=== PATIENT | male | born 1980 | race Caucasian/White ===

== ENCOUNTER 2017-01-12 03:42 | Emergency (ER) | payer BC ==
[2017-01-12] MEDS ORDERED: Ibuprofen 800 MG TAB ONE (04:06)
[2017-01-12] MEDS ORDERED: Azithromycin 250 MG TAB ONE (04:06)
== END 2017-01-12 04:10 | disposition home or self-care (01) ==
LOC: MADERS 03:42
DX: H66.91 Otitis media, unspecified, right ear (principal); H60.91 Unspecified otitis externa, right ear; E03.9 Hypothyroidism, unspecified; Z79.899 Other long term (current) drug therapy
CPT/HCPCS: 99282

== ENCOUNTER 2017-03-27 09:21 | Outpatient (CLI) | payer BC, OTHER ==
[2017-03-27 11:18] LABS: Hemoglobin A1c 4.9 % (4.0-6.0)
[2017-03-27 11:23] LABS: ALT (SGPT) 32 U/L (8-55); AST (SGOT) 23 U/L (5-34); Albumin 4.2 g/dL (3.5-5.0); Alkaline Phosphatase 102 U/L (40-150); Anion Gap 13 mmol/L (10-20); BUN (Urea Nitrogen) 18 mg/dL (8.9-20.6); Bilirubin, Total 0.5 mg/dL (0.2-1.2); Calc. Creatinine Clearance 0 mL/min (70-130); Calcium 9.6 mg/dL (7.8-10.44); Carbon Dioxide 25 mmol/L (22-29); Cardiac Risk 5.8 (Less than 4.5); Chloride 104 mmol/L (98-107); Cholesterol 209 mg/dl (< 200 Desired); Estimated GFR-MDRD Greater than 90; Globulin 2.8 g/dL (2.4-3.5); Glucose 90 mg/dL (70-105); HDL Cholesterol 36 mg/dL (>60 Neg Risk); LDL Cholesterol, Calculated 104 mg/dL; Magnesium 2.2 mg/dL (1.6-2.6); Potassium 4.1 mmol/L (3.5-5.1); Sodium 138 mmol/L (136-145); Triglycerides 343 mg/dL (Less than 150)
[2017-03-27 12:43] LABS: #Basophils 0.1 thou/uL (0.0-0.2); #Eosinphils 0.1 thou/uL (0.0-0.7); #Lymphocytes 2.4 thou/uL (1.20-3.40); #Monocytes 0.3 thou/uL (0.11-0.59); #Neutrophils 2.5 thou/uL (1.40-6.50); %Basophils 1.1 % (0.0-1.0); %Eosinophils 2.4 % (0.0-10.0); %Lymphocytes 43.8 % (21.0-51.0); %Monocytes 6.2 % (0.0-10.0); %Neutrophils 46.4 % (42.0-75.0); Hemoglobin 14.9 g/dL (14.0-18.0); Mean Corpuscular HGB CONC 33.9 g/dL (32.0-36.0); Mean Corpuscular Hemoglobin 29.6 pg (27.0-31.0); Mean Corpuscular Volume 87.1 fl (80.0-94.0); Mean Platelet Volume 6.5 fL (7.4-10.4); Platelet Count 283 thou/uL (130-400); Red Blood Cell (RBC) Count 5.06 mill/uL (4.70-6.10); White Blood Cell (WBC) Count 5.4 thou/uL (4.8-10.8)
[2017-03-27 14:14] LABS: Bilirubin Negative (Negative); Blood, Urine Negative (Negative); Glucose, Urine (Dipstick) Negative (Negative); Leukocyte Negative (Negative); Nitrite Negative (Negative); Protein, Urine (Dipstick) Negative (Neg-Trace); Specific Gravity, Urine 1.025 (1.005-1.030); Urobilinogen 0.2 mg/dL (0.2-1.0)
[2017-03-27 14:21] LABS: Free T4 (Free Thyroxine) 0.77 ng/dL (0.70-1.48); Thyroid Stimulating Hormone 0.7346 uIU/mL (0.35-4.94)
[2017-03-27 14:31] LABS: Bacteria/HPF Rare-Few HPF (None Seen); Clarity Clear (Clear); RBC/HPF None Seen HPF (0-3); Squamous Epithelial None Seen HPF (0-3); WBC/HPF None Seen HPF (0-3)
[2017-03-27 16:58] LABS: Ferritin 96.2 ng/mL (22-322); T4 3.8 ug/dL (4.87-11.72)
[2017-03-27 17:01] LABS: Insulin 5.6 uU/mL (3.0-25.0)
[2017-03-27 17:11] LABS: Folate (Folic Acid) 17.7 ng/mL (7.0-31.4)
[2017-03-29 08:11] LABS: Triidothyronine-T3 104 ng/dL (71-180)
[2017-03-29 13:10] LABS: Immunoglobulin - E 15 IU/mL (0-100)
[2017-04-02 10:20] LABS: Thyroglobulin Antibody by RIA Less than 1.0 IU/mL (0.0-0.9)
[2017-04-03 22:09] LABS: Mycoplasma pneumoniae IgG AB 110 U/mL (0-99)
== END 2017-03-27 09:22 | disposition home or self-care (01) ==
LOC: MADLAB 09:21
PROVIDERS: ATTEND Psychiatry & Neurology Psychiatry
DX: E03.8 Other specified hypothyroidism (principal); I15.8 Other secondary hypertension; B95.0 Streptococcus, group A, as the cause of diseases classified elsewhere; E27.8 Other specified disorders of adrenal gland; R79.82 Elevated C-reactive protein (CRP); D83.2 Common variable immunodeficiency with autoantibodies to B- or T-cells; D89.89 Other specified disorders involving the immune mechanism, not elsewhere classified; D50.9 Iron deficiency anemia, unspecified; K90.0 Celiac disease; E11.9 Type 2 diabetes mellitus without complications; D84.9 Immunodeficiency, unspecified; E83.40 Disorders of magnesium metabolism, unspecified; R79.89 Other specified abnormal findings of blood chemistry; E23.0 Hypopituitarism; D51.9 Vitamin B12 deficiency anemia, unspecified; E06.3 Autoimmune thyroiditis; E53.8 Deficiency of other specified B group vitamins; R53.81 Other malaise; E22.2 Syndrome of inappropriate secretion of antidiuretic hormone
CPT/HCPCS: 36415; 80053; 80061; 80346; 81001; 82306; 82533; 82607; 82728; 82746; 82785; 83036; 83525; 83735; 83880; 84146; 84403; 84436; 84439; 84443; 84479; 84480; 84481; 84588; 85025; 86060; 86141; 86376; 86800; 87086; G0480

== ENCOUNTER 2017-04-12 10:46 | Emergency (ER) | payer BC, OTHER ==
[2017-04-12] MEDS ORDERED: AMOXicillin 250 MG CAP ONE (11:16)
== END 2017-04-12 11:25 | disposition home or self-care (01) ==
LOC: MADERS 10:46
DX: J02.9 Acute pharyngitis, unspecified (principal); L25.9 Unspecified contact dermatitis, unspecified cause; R59.0 Localized enlarged lymph nodes; E03.9 Hypothyroidism, unspecified; I10 Essential (primary) hypertension
CPT/HCPCS: 96372; J1040

== ENCOUNTER 2017-04-24 08:58 | Outpatient (CLI) | payer BC, OTHER ==
[2017-04-27 11:04] LABS: Ref Lab Test Ordered ALD/RENIN RATIO; Reference Lab Name LABCORP
[2017-04-27 11:06] LABS: Ref Lab Test Ordered 505370; Reference Lab Name LABCORP
[2017-04-27 11:10] LABS: Reference Lab Name LABCORP
[2017-04-27 11:11] LABS: Ref Lab Test Ordered GLUTEN SENS
[2017-04-27 11:12] LABS: Ref Lab Test Ordered ANTI-DNASE; Reference Lab Name LABCORP
[2017-04-27 14:30] LABS: Reference Lab Name LABCORP
[2017-04-27 14:31] LABS: Ref Lab Test Ordered TGF-B1
== END 2017-04-24 08:59 | disposition home or self-care (01) ==
LOC: MADLAB 08:58
PROVIDERS: ATTEND Psychiatry & Neurology Psychiatry
DX: B95.0 Streptococcus, group A, as the cause of diseases classified elsewhere (principal); I15.8 Other secondary hypertension; E27.8 Other specified disorders of adrenal gland; R79.82 Elevated C-reactive protein (CRP); D83.2 Common variable immunodeficiency with autoantibodies to B- or T-cells; D89.89 Other specified disorders involving the immune mechanism, not elsewhere classified; D50.9 Iron deficiency anemia, unspecified; K90.0 Celiac disease; E11.9 Type 2 diabetes mellitus without complications; E78.00 Pure hypercholesterolemia, unspecified; E83.40 Disorders of magnesium metabolism, unspecified; E23.0 Hypopituitarism; D51.9 Vitamin B12 deficiency anemia, unspecified; E06.3 Autoimmune thyroiditis; E03.8 Other specified hypothyroidism; E53.8 Deficiency of other specified B group vitamins; R53.81 Other malaise; E22.2 Syndrome of inappropriate secretion of antidiuretic hormone
CPT/HCPCS: 36415; 86160

== ENCOUNTER 2019-03-14 16:35 | Emergency (ER) | payer OTHER | END 2019-03-14 16:47 | disposition left against medical advice (07) | LOC: MADERS 16:35 | DX: Z53.21 Procedure and treatment not carried out due to patient leaving prior to being seen by health care provider (principal) ==

== ENCOUNTER 2022-05-12 06:01 | Emergency (ER) | payer OTHER ==
[2022-05-12] MEDS ORDERED: Lactated Ringer's 1,000 ML ONE (06:51)
[2022-05-12] MEDS ORDERED: Ondansetron PF 4 MG/2 ML Vial ONE (06:51)
[2022-05-12] MEDS ORDERED: Ketorolac Tromethamine 30 MG/ML VIAL ONE (06:51)
[2022-05-12 07:00] LABS: #Eosinphils 0.1 thou/uL (0.0-0.7); #Lymphocytes 1.2 thou/uL (1.20-3.40); #Monocytes 0.7 thou/uL (0.11-0.59); #Neutrophils 3.7 thou/uL (1.40-6.50); %Basophils 0.8 % (0.0-1.0); %Lymphocytes 20.5 % (21.0-51.0); %Monocytes 12.2 % (0.0-10.0); %Neutrophils 65.6 % (42.0-75.0); Mean Corpuscular HGB CONC 32.3 g/dL (32.0-36.0); Mean Corpuscular Hemoglobin 28.4 pg (27.0-31.0); Mean Corpuscular Volume 87.9 fL (78.0-98.0); Mean Platelet Volume 7.5 fL (7.4-10.4); Platelet Count 191 thou/uL (130-400); RBC Distribution Width 10.9 % (11.5-14.5); Red Blood Cell (RBC) Count 5.29 mill/uL (4.70-6.10); White Blood Cell (WBC) Count 5.7 thou/uL (4.8-10.8)
[2022-05-12 07:13] LABS: Base Excess-Venous -0.1 mmol/L (-2.0 to 3.0); Bicarbonate (HCO3v) 23.3 mmol/L (22.0-28.0); Calcium, Ionized 1.14 mmol/L (1.15-1.33); Chloride 104 mmol/L (98-107); Hemoglobin - Calc 15.9 g/dL (14.0-18.0); Potassium 3.6 mmol/L (3.5-5.1); Sodium 140 mmol/L (138-145); T. Carbon Dioxide 24.3 mmol/L (22.0-28.0)
[2022-05-12] MEDS ORDERED: Prochlorperazine 10 MG/2 ML VIAL ONE (07:23)
[2022-05-12] MEDS ORDERED: Meclizine HCl 25 MG TAB ONE (07:23)
[2022-05-12 07:24] LABS: ALT (SGPT) 19 U/L (8-55); AST (SGOT) 16 U/L (5-34); Albumin 4.5 g/dL (3.5-5.0); Alkaline Phosphatase 59 U/L (40-110); Anion Gap 17 mmol/L (10-20); BUN (Urea Nitrogen) 8 mg/dL (8.9-20.6); Bilirubin, Total 0.6 mg/dL (0.2-1.2); CRP (Inflammatory) 2.19 mg/dL (= or < 0.5); Calc. Creatinine Clearance 0 mL/min (70-130); Calcium 9.6 mg/dL (7.8-10.44); Carbon Dioxide 24 mmol/L (22-29); Chloride 104 mmol/L (98-107); Estimated GFR 91; Globulin 2.1 g/dL (2.4-3.5); Glucose 105 mg/dL (70-105); Potassium 3.9 mmol/L (3.5-5.1); Protein, Total 6.6 g/dL (6.0-8.3); Sodium 141 mmol/L (136-145)
[2022-05-12 07:27] LABS: Lipase 9 U/L (8-78); Magnesium 1.9 mg/dL (1.6-2.6)
[2022-05-12 07:33] LABS: SARS-CoV-2 NAA Rapid Test DETECTED (NotDetected)
[2022-05-12 07:54] LABS: Bilirubin Negative (Negative); Blood, Urine Negative (Negative); Clarity Clear (Clear); Glucose, Urine (Dipstick) Negative (Negative); Ketone, Urine Negative (Negative); Leukocyte Negative (Negative); Nitrite Negative (Negative); Protein, Urine (Dipstick) Negative (Neg-Trace); Specific Gravity, Urine 1.015 (1.005-1.030); Urobilinogen 0.2 mg/dL (Less than 2)
== END 2022-05-12 08:15 | disposition home or self-care (01) ==
LOC: MADERS 06:01
DX: U07.1 COVID-19 (principal); R55 Syncope and collapse; R11.0 Nausea; R94.31 Abnormal electrocardiogram [ECG] [EKG]; R29.700 NIHSS score 0; E03.9 Hypothyroidism, unspecified; E78.5 Hyperlipidemia, unspecified; Z79.899 Other long term (current) drug therapy
CPT/HCPCS: 36415; 71045; 80053; 81003; 82330; 82803; 83605; 83690; 83735; 84443; 84484; 85025; 85379; 86140; 87040; 87081; 87430; 93005; 94760; 96361; 96374; 96375; J0780; J1885; J2405; J7120

== ENCOUNTER 2022-08-16 10:49 | Emergency (ER) | payer OTHER ==
[~2022-08-16 10:49] MED LIST: Iopamidol 370 76% 100 ML VIAL ONE
[2022-08-16 14:43] LABS: #Lymphocytes 0.9 thou/uL (1.20-3.40); #Monocytes 0.6 thou/uL (0.11-0.59); #Neutrophils 3.8 thou/uL (1.40-6.50); %Basophils 0.5 % (0.0-1.0); %Lymphocytes 16.3 % (21.0-51.0); %Monocytes 10.9 % (0.0-10.0); %Neutrophils 72.2 % (42.0-75.0); Hemoglobin 15.2 g/dL (14.0-18.0); Mean Corpuscular HGB CONC 34.1 g/dL (32.0-36.0); Mean Corpuscular Hemoglobin 29.7 pg (27.0-31.0); Mean Corpuscular Volume 87.1 fl (78.0-98.0); Mean Platelet Volume 6.8 fL (7.4-10.4); Platelet Count 256 10x3/uL (130-400); RBC Distribution Width 10.3 % (11.5-14.5); Red Blood Cell (RBC) Count 5.12 mill/uL (4.70-6.10); White Blood Cell (WBC) Count 5.3 10x3/uL (4.8-10.8)
[2022-08-16 14:49] LABS: ALT (SGPT) 26 U/L (8-55); AST (SGOT) 20 U/L (5-34); Albumin 4.4 g/dL (3.5-5.0); Alkaline Phosphatase 61 U/L (40-110); Anion Gap 15 mmol/L (10-20); BUN (Urea Nitrogen) 8 mg/dL (8.9-20.6); Bilirubin, Total 0.3 mg/dL (0.2-1.2); Calc. Creatinine Clearance 0 mL/min (70-130); Calcium 9.4 mg/dL (7.8-10.44); Carbon Dioxide 26 mmol/L (22-29); Chloride 98 mmol/L (98-107); Estimated GFR 100; Globulin 2.5 g/dL (2.4-3.5); Glucose 104 mg/dL (70-105); Potassium 4.2 mmol/L (3.5-5.1); Protein, Total 6.9 g/dL (6.0-8.3); Sodium 135 mmol/L (136-145)
[2022-08-16] MEDS ORDERED: Lactated Ringer's 1,000 ML ONE (14:54)
[2022-08-16] MEDS ORDERED: Ketorolac Tromethamine 30 MG/ML VIAL ONE (14:54)
[2022-08-16] MEDS ORDERED: Prochlorperazine 10 MG/2 ML VIAL ONE (17:37)
[2022-08-16] MEDS ORDERED: Acetaminophen 500 MG TAB ONE (17:38)
[2022-08-16 18:38] LABS: Bilirubin Negative (Negative); Blood, Urine Negative (Negative); Clarity Clear (Clear); Glucose, Urine (Dipstick) Negative (Negative); Ketone, Urine 15 mg/dL (Negative); Leukocyte Negative (Negative); Nitrite Negative (Negative); Protein, Urine (Dipstick) Negative (Neg-Trace); Urobilinogen 0.2 mg/dL (Less than 2)
== END 2022-08-16 19:09 | disposition home or self-care (01) ==
LOC: MADERS 10:49
DX: J06.9 Acute upper respiratory infection, unspecified (principal); R11.0 Nausea; Z20.822 Contact with and (suspected) exposure to COVID-19; E03.9 Hypothyroidism, unspecified; E78.5 Hyperlipidemia, unspecified; Z79.899 Other long term (current) drug therapy
CPT/HCPCS: 71046; 74177; 80053; 81003; 83605; 85025; 87040; 87081; 87430; 87804; 96374; 96375; J0780; J1885; J7120; Q9967; U0003; U0005